=== PATIENT | female | born 1995 | race African-American/Black ===

== ENCOUNTER 2019-06-04 00:28 | Emergency (ER) | payer SELFPAY ==
[2019-06-04] MEDS ORDERED: AMOX/K CLAV 875 MG TAB ONE (01:11)
[2019-06-04] MEDS ORDERED: IBUPROFEN 400 MG TAB ONE (01:11)
--- NOTE | 2019-06-04 01:19 | ER ---
Nurse's Notes [facility] Name: Sandra Talavera Age: 24 yrs Sex: Female : 1995 Arrival Date: 06/04/2019 Time: 00:40 Bed 8 Private MD: Diagnosis: Fever, unspecified;Acute upper respiratory infection, unspecified Presentation: 06/04 00:49 Presenting complaint: Patient states: For the past 3 days I have been having headache jb4 and congestion with fever and cough. Transition of care: patient was not received from another setting of care. Onset of symptoms was June 02, 2019. Risk Assessment: Do you want to hurt yourself or someone else? Patient reports no desire to harm self or others. Initial Sepsis Screen: Does the patient meet any 2 criteria? HR > 90 bpm. Yes Does the patient have a suspected source of infection? No. Patient's initial sepsis screen is negative. Care prior to arrival: None. 00:49 Method Of Arrival: Ambulatory jb4 00:49 Acuity: AXEL 4 jb4 Historical: - Allergies: 00:50 No Known Allergies; jb4 - Home Meds: 00:50 None [Active]; jb4 - PMHx: 00:50 None; jb4 - PSHx: 00:50 Leaft breast; Cholecystectomy; jb4 - Immunization history:: Adult Immunizations up to date. - Social history:: Smoking status: Patient uses tobacco products, 4 cigarettes per day, Patient/guardian denies using alcohol, street drugs. - Ebola Screening: : No symptoms or risks identified at this time. Screenin:52 Abuse screen: Denies threats or abuse. Nutritional screening: No deficits noted. jb4 Tuberculosis screening: No symptoms or risk factors identified. Fall Risk None identified. Assessment: 00:52 General: Appears in no apparent distress. uncomfortable, Behavior is calm, cooperative, jb4 appropriate for age. Pain: Complains of pain in head ache. Pain radiates to neck Pain currently is 7 out of 10 on a pain scale. Neuro: Level of Consciousness is awake, alert, obeys commands, Oriented to person, place, time, situation, Moves all extremities. Full function Gait is steady, Speech is normal, Facial symmetry appears normal, Pupils are PERRLA. Cardiovascular: Patient's skin is warm and dry. Respiratory: Reports cough that is Airway is patent Respiratory effort is even, unlabored, Respiratory pattern is regular, symmetrical. GI: No deficits noted. No signs and/or symptoms were reported involving the gastrointestinal system. : No deficits noted. No signs and/or symptoms were reported regarding the genitourinary system. EENT: No deficits noted. No signs and/or symptoms were reported regarding the EENT system. Derm: Skin is intact, Skin is dry, Skin is normal, Skin temperature is warm. Musculoskeletal: Circulation, motion, and sensation intact. Range of motion: intact in all extremities. Vital Signs: 00:51 BP 152 / 82; Pulse 113; Resp 16; Temp 99.5(O); Pulse Ox 100% on R/A; Weight 81.65 kg jb4 (R); Height 5 ft. 3 in. (160.02 cm) (R); Pain 7/10; 00:51 Body Mass Index 31.89 (81.65 kg, 160.02 cm) jb4 ED Course: 00:40 Patient arrived in ED. cl3 00:47 Joel Fleming MD is Attending Physician. merline 00:49 Gurinder Talavera, RN is Primary Nurse. jb4 00:50 Triage completed. jb4 00:51 Arm band placed on right wrist. jb4 00:52 Patient has correct armband on for positive identification. Bed in low position. Call jb4 light in reach. Side rails up X 1. Pulse ox on. NIBP on. 01:28 No provider procedures requiring assistance completed. Patient did not have IV access jb4 during this emergency room visit. Administered Medications: 01:12 Drug: Augmentin 875 mg Route: PO; jb4 01:27 Follow up: Response: No adverse reaction jb4 01:13 Drug: Motrin 800 mg Route: PO; jb4 01:27 Follow up: Response: No adverse reaction jb4 Outcome: 01:18 Discharge ordered by . merline 01:28 Discharged to home ambulatory, with significant other. jb4 01:28 Condition: stable 01:28 Discharge instructions given to patient, significant other, Instructed on discharge instructions, follow up and referral plans. medication usage, Demonstrated understanding of instructions, follow-up care, medications, Prescriptions given X 2. 01:29 Patient left the ED. jb4 Signatures: Joel Fleming MD MD cha Bryson, James, RN RN jb4 Roberto, Charde cl3 Corrections: (The following items were deleted from the chart) 00:51 00:49 Initial Sepsis Screen: Does the patient meet any 2 criteria? No. Patient's jb4 initial sepsis screen is negative. Does the patient have a suspected source of infection? No. Patient's initial sepsis screen is negative. jb4
--- NOTE | 2019-06-04 01:19 | EDPHYS ---
Physician Documentation [facility] Name: Sandra Talavera Age: 24 yrs Sex: Female : 1995 Arrival Date: 06/04/2019 Time: 00:40 Bed 8 Private MD: ED Physician Joel Fleming HPI: 06/04 01:07 This 24 yrs old Black Female presents to ER via Ambulatory with complaints of Fever. merline 01:07 The patient reports fever, that was measured at 100 degrees Fahrenheit. Onset: The merline symptoms/episode began/occurred 2 day(s) ago. Modifying factors: there are no obvious modifying factors. Associated signs and symptoms: Pertinent positives: abdominal pain. Severity of symptoms: At their worst the symptoms were. The patient has not experienced similar symptoms in the past. Historical: - Allergies: 00:50 No Known Allergies; jb4 - Home Meds: 00:50 None [Active]; jb4 - PMHx: 00:50 None; jb4 - PSHx: 00:50 Leaft breast; Cholecystectomy; jb4 - Immunization history:: Adult Immunizations up to date. - Social history:: Smoking status: Patient uses tobacco products, 4 cigarettes per day, Patient/guardian denies using alcohol, street drugs. - Ebola Screening: : No symptoms or risks identified at this time. ROS: 01:10 Eyes: Negative for injury, pain, redness, and discharge, ENT: Negative for injury, merline pain, and discharge, Neck: Negative for injury, pain, and swelling, Cardiovascular: Negative for chest pain, palpitations, and edema, Abdomen/GI: Negative for abdominal pain, nausea, vomiting, diarrhea, and constipation, Back: Negative for injury and pain, : Negative for injury, bleeding, discharge, and swelling, MS/Extremity: Negative for injury and deformity, Skin: Negative for injury, rash, and discoloration, Neuro: Negative for headache, weakness, numbness, tingling, and seizure, Psych: Negative for depression, anxiety, suicide ideation, homicidal ideation, and hallucinations, Allergy/Immunology: Negative for hives, rash, and allergies, Endocrine: Negative for neck swelling, polydipsia, polyuria, polyphagia, and marked weight changes, Hematologic/Lymphatic: Negative for swollen nodes, abnormal bleeding, and unusual bruising. 01:10 Constitutional: Positive for body aches, chills, fever. 01:10 Respiratory: Positive for cough. Exam: 01:10 Head/Face: Normocephalic, atraumatic. Eyes: Pupils equal round and reactive to light, merline extra-ocular motions intact. Lids and lashes normal. Conjunctiva and sclera are non-icteric and not injected. Cornea within normal limits. Periorbital areas with no swelling, redness, or edema. Neck: Trachea midline, no thyromegaly or masses palpated, and no cervical lymphadenopathy. Supple, full range of motion without nuchal rigidity, or vertebral point tenderness. No Meningismus. Chest/axilla: Normal chest wall appearance and motion. Nontender with no deformity. No lesions are appreciated. Cardiovascular: Regular rate and rhythm with a normal S1 and S2. No gallops, murmurs, or rubs. Normal PMI, no JVD. No pulse deficits. Respiratory: Lungs have equal breath sounds bilaterally, clear to auscultation and percussion. No rales, rhonchi or wheezes noted. No increased work of breathing, no retractions or nasal flaring. Abdomen/GI: Soft, non-tender, with normal bowel sounds. No distension or tympany. No guarding or rebound. No evidence of tenderness throughout. Back: No spinal tenderness. No costovertebral tenderness. Full range of motion. Skin: Warm, dry with normal turgor. Normal color with no rashes, no lesions, and no evidence of cellulitis. MS/ Extremity: Pulses equal, no cyanosis. Neurovascular intact. Full, normal range of motion. Neuro: Awake and alert, GCS 15, oriented to person, place, time, and situation. Cranial nerves II-XII grossly intact. Motor strength 5/5 in all extremities. Sensory grossly intact. Cerebellar exam normal. Normal gait. Psych: Awake, alert, with orientation to person, place and time. Behavior, mood, and affect are within normal limits. 01:10 Constitutional: The patient appears febrile. 01:10 Respiratory: the patient does not display signs of respiratory distress, Respirations: normal, no acute changes, Breath sounds: bronchial sounds, rhonchi, that are mild. Vital Signs: 00:51 BP 152 / 82; Pulse 113; Resp 16; Temp 99.5(O); Pulse Ox 100% on R/A; Weight 81.65 kg jb4 (R); Height 5 ft. 3 in. (160.02 cm) (R); Pain 7/10; 00:51 Body Mass Index 31.89 (81.65 kg, 160.02 cm) 4 MDM: 00:47 Patient medically screened. [facility] 01:14 Data reviewed: vital signs, nurses notes. [facility] 06/04 01:19 Order name: PO challenge; Complete Time: 01:20 [facility] Administered Medications: 01:12 Drug: Augmentin 875 mg Route: PO; 4 01:27 Follow up: Response: No adverse reaction 4 01:13 Drug: Motrin 800 mg Route: PO; jb4 01:27 Follow up: Response: No adverse reaction 4 Disposition: 06/04/19 01:18 Discharged to Home. Impression: Fever, unspecified, Acute upper respiratory infection, unspecified. - Condition is Stable. - Discharge Instructions: Fever, Adult, Upper Respiratory Infection, Adult, Cool Mist Vaporizer, Upper Respiratory Infection, Adult, [id number], Cough, Adult, [id number], Cough, Adult. - Prescriptions for Augmentin 875- 125 mg Oral Tablet - take 1 tablet by ORAL route every 12 hours for 10 days; 20 tablet. Jeaneth- D 12 Hour 60-120 mg Oral Tablet Sustained Release 12 hr - take 1 tablet by ORAL route every 12 hours As needed; 20 tablet. - Medication Reconciliation Form, Thank You Letter, Antibiotic Education, Prescription Opioid Use, Work release form form. - Follow up: Private Physician; When: 2 - 3 days; Reason: Recheck today's complaints, Continuance of care, Re-evaluation by your physician. - Problem is new. - Symptoms have improved. Signatures: Joel Fleming MD MD cha Bryson, James, RN RN jb4 Corrections: (The following items were deleted from the chart) 01:29 01:18 06/04/2019 01:18 Discharged to Home. Impression: Fever, unspecified; Acute upper jb4 respiratory infection, unspecified. Condition is Stable. Forms are Medication Reconciliation Form, Thank You Letter, Antibiotic Education, Prescription Opioid Use. Follow up: Private Physician; When: 2 - 3 days; Reason: Recheck today's complaints, Continuance of care, Re-evaluation by your physician. Problem is new. Symptoms have improved. [facility]
[2019-06-04 01:35] VITALS: BP 152/82; TEMP 99.5; O2SAT 100
== END 2019-06-04 01:29 | disposition home or self-care (01) ==
LOC: ER 00:28
DX: J06.9 Acute upper respiratory infection, unspecified (principal); F17.210 Nicotine dependence, cigarettes, uncomplicated
CPT/HCPCS: 99283